=== PATIENT | male | born 2000 | race Two or more races ===

== ENCOUNTER 2024-03-20 14:15 | Emergency (ER) | payer MEDICAID, OTHER ==
[~2024-03-20] VITALS: Ht 162.6 cm; Wt 50.1 kg
[2024-03-20] MEDS: KETOROLAC TROMETH 30 MG/ML 1ML VIAL IM ONE (17:27)
[2024-03-20 17:49] VITALS: BP 108/60; PULSE 105; RESP 18; O2SAT 95
[2024-03-20] MEDS: ACETAMINOPHEN 325 MG TAB PO ONE (17:57)
[2024-03-20 18:43] VITALS: TEMP 100.4
[2024-03-20 19:36] LABS: Rapid Strep A Screen-Throat Negative
== END 2024-03-20 19:40 | disposition home or self-care (01) ==
LOC: ER 14:15
DX: J06.9 Acute upper respiratory infection, unspecified (principal); R11.2 Nausea with vomiting, unspecified; R07.89 Other chest pain
CPT/HCPCS: 71045; 87070; 87880; 96372; 99284; J1885